=== PATIENT | female | born 1975 | race Caucasian/White ===

== ENCOUNTER 2019-03-03 15:41 | Emergency (ER) | payer MEDICAID ==
[~2019-03-03] VITALS: Ht 154.9 cm; Wt 63.6 kg
[2019-03-03 15:44] VITALS: Ht 154.9 cm; Wt 63.6 kg
[2019-03-03 18:45] VITALS: BP 132/77
== END 2019-03-03 18:45 | disposition home or self-care (01) ==
LOC: ED 15:41
DX: J06.9 Acute upper respiratory infection, unspecified (principal); E11.9 Type 2 diabetes mellitus without complications
CPT/HCPCS: 82962

== ENCOUNTER 2019-06-13 16:15 | Emergency (ER) | payer MEDICAID ==
[~2019-06-13] VITALS: Ht 154.9 cm; Wt 63.5 kg
[2019-06-13 16:38] VITALS: Ht 154.9 cm; Wt 63.5 kg
[2019-06-13 18:28] LABS: microscopic required? YES; urine erythrocyte 3+ (NEGATIVE)
[2019-06-13 18:34] LABS: BASOPHIL % 0.3 % (0-2); PLATELET COUNT 318 x10^3mcL (130-400); RED CELL DISTRIBUTION WIDTH 15.8 % (11.5-14.5)
[2019-06-13 18:46] LABS: BILIRUBIN TOTAL 0.4 mg/dL (0.20-1.00); CALCIUM 7.9 mg/dL (8.5-10.1); CREATININE SERUM 1.2 mg/dL (0.6-1.0); POTASSIUM SERUM 4.3 mmol/L (3.5-5.1); TOTAL PROTEIN, SERUM 7.8 g/dL (6.4-8.2)
[2019-06-13 18:48] LABS: ALBUMIN 2.4 g/dL (3.4-5.0)
[2019-06-13 20:34] VITALS: BP 110/69
== END 2019-06-13 20:34 | disposition home or self-care (01) ==
LOC: ED 16:15
PROVIDERS: Emergency Medicine
DX: J06.9 Acute upper respiratory infection, unspecified (principal); E11.9 Type 2 diabetes mellitus without complications
CPT/HCPCS: 87804; J7030; Q0092